=== PATIENT | male | born 1975 | race Caucasian/White ===

== ENCOUNTER 2021-07-24 21:14 | Emergency (ER) | payer BC ==
[2021-07-24] MEDS ORDERED: Ondansetron 4 MG/2 ML SDV IVPUSH ONE ×2 (21:46→23:38)
[2021-07-24] MEDS ORDERED: Sodium Chloride 0.9% 1,000 ML IV ONE (21:46)
[2021-07-24] MEDS ORDERED: HYDROmorphone 1 MG/ML Syringe IVPUSH ONE (21:46)
--- NOTE | 2021-07-24 21:49 | EDM.PDOC ---
ED HPI GENERAL MEDICAL PROBLEM - General Chief Complaint: Gastrointestinal Problem Stated Complaint: VOMITING Time Seen by Provider: 07/24/21 21:31 Source of Information: Reports: Patient History Limitations: Reports: No Limitations - History of Present Illness INITIAL COMMENTS - FREE TEXT/NARRATIVE: Mr. Brock is a very pleasant man who now presents to the ED stating that he d eveloped epigastric abdominal pain, nausea, and vomiting, this past , 07/22/2021. He also states that he feels dehydrated. No recent diarrhea or fever. The patient states that he tried taking a liquid antacid, but vomited it. He states that he also took a stool softener today, but vomited it, as well. The patient reports that he has had similar symptoms approximately 4 times over the past 5 years, most recently about 3 years ago. He states that while he has never undergone an EGD or colonoscopy, he was told that his symptoms were due to gastritis. At triage, the patient was found to be hemodynamically stable, afebrile, saturating 98% on room air. He appears to be comfortable, in no acute distress. Prior to , the patient denies having a recent fever, chills, sore th roat, ear pain, nasal or sinus congestion, cough, dyspnea, chest pain, palpitations, nausea, vomiting, constipation, diarrhea, abdominal pain, urinary symptoms, recent weight gain or weight loss, recent bloody bowel movements or black bowel movements, recent joint aches, headaches, or rashes. The patient states that he last ate around noon today. The patient does not recall the name of his PCP at [facility]. He has received 1 Moderna vaccination, but no influenza vaccination this season. Epigastric Pain Score (Numeric/FACES): 5 - Related Data Allergies Allergy/AdvReac Type Severity Reaction Status Date / Time No Known Allergies Allergy Verified 07/24/21 21:23 Home Meds: Home Meds . [No Known Home Meds] 07/24/21 [History] Past Medical History - Past Surgical History HEENT Surgical History: Reports: Oral Surgery (dental extractions) Social & Family History - Tobacco Use Years of Tobacco use: 27 Packs/Tins Daily: 1 Packs/Tins Daily Comment: Down from 2 ppd Tobacco Use Comment: Started smoking 1993 - Alcohol Use Alcohol Use History: Yes Alcohol Use Frequency: Socially (used to drink excessively) - Recreational Drug Use Recreational Drug Use: Yes Drug Use in Last 12 Months: Yes Recreational Drug Type: Reports: Marijuana/Hashish (last smoked Apr 2021) - Living Situation & Occupation Living situation: Reports: Single, with Significant Other (Girlfriend) Occupation: Unemployed ED ROS GENERAL - Review of Systems Review Of Systems: Comprehensive ROS is negative, except as noted in HPI. ED EXAM, GI/ABD - Physical Exam Exam: See Below Exam Limited By: No Limitations General Appearance: Alert, WD/WN, No Apparent Distress Eyes: Bilateral: Normal Appearance, EOMI Ears: Normal External Exam, Hearing Grossly Normal Nose: Normal Inspection Throat/Mouth: Normal Inspection, Normal Lips, Normal Voice, No Airway Compromise Head: Atraumatic, Normocephalic Neck: Normal Inspection, Full Range of Motion Respiratory/Chest: No Respiratory Distress, Lungs Clear, Normal Breath Sounds, No Accessory Muscle Use Cardiovascular: Normal Peripheral Pulses, Regular Rate, Rhythm, No Edema, No Gallop, No JVD, No Murmur, No Rub GI/Abdominal Exam: Normal Bowel Sounds, Soft, No Organomegaly, No Distention, No Abnormal Bruit, No Mass, Tender (Primarily in the epigastrium, but in the right upper quadrant as well, including a true Casas's sign. Essentially nontender elsewhere.) Back Exam: Normal Inspection, Full Range of Motion. No: CVA Tenderness (L), CVA Tenderness (R) Extremities: Normal Inspection, Normal Range of Motion, No Pedal Edema, Normal Capillary Refill Neurological: Alert, Oriented, Normal Cognition, No Motor/Sensory Deficits Psychiatric: Normal Affect Skin Exam: Warm, Dry, Intact, Normal Color, No Rash Course - Vital Signs Last Recorded V/S: Last Vital Signs Temp 36.7 C 07/24/21 21:25 Pulse 77 07/24/21 21:25 Resp 17 07/24/21 21:25 BP 137/88 07/24/21 21:25 Pulse Ox 98 07/24/21 21:25 - Orders/Labs/Meds Orders: Active Orders 24 hr Category Date Time Status Abdomen Pelvis w Cont [CT] Stat Exams 07/24/21 21:46 Ordered Labs: Laboratory Tests 07/24/21 07/24/21 Range/Units 21:59 21:59 WBC 10.58 H (4.23-9.07) K/mm3 RBC 5.32 (4.63-6.08) M/mm3 Hgb 16.6 (13.7-17.5) gm/dl Hct 48.5 (40.1-51.0) % MCV 91.2 (79.0-92.2) fl MCH 31.2 (25.7-32.2) pg MCHC 34.2 (32.2-35.5) g/dl RDW Std Deviation 44.4 H (35.1-43.9) fL Plt Count 393 H (163-337) K/mm3 MPV 9.5 (9.4-12.3) fl Neut % (Auto) 67.4 (34.0-67.9) % Lymph % (Auto) 23.3 (21.8-53.1) % [place] % (Auto) 8.2 (5.3-12.2) % Eos % (Auto) 0.7 L (0.8-7.0) Baso % (Auto) 0.1 (0.1-1.2) % Neut # (Auto) 7.14 H (1.78-5.38) K/mm3 Lymph # (Auto) 2.46 (1.32-3.57) K/mm3 [place] # (Auto) 0.87 H (0.30-0.82) K/mm3 Eos # (Auto) 0.07 (0.04-0.54) K/mm3 Baso # (Auto) 0.01 (0.01-0.08) K/mm3 Sodium 136 (136-145) mEq/L Potassium 4.2 (3.5-5.1) mEq/L Chloride 97 L (98-107) mEq/L Carbon Dioxide 31 (21-32) mEq/L Anion Gap 12.2 (5-15) BUN 17 (7-18) mg/dL Creatinine 0.9 (0.7-1.3) mg/dL Est Cr Clr Drug Dosing 108.15 mL/min Estimated GFR (MDRD) > 60 (>60) mL/min BUN/Creatinine Ratio 18.9 H (14-18) Glucose 118 H (70-99) mg/dL Calcium 10.0 (8.5-10.1) mg/dL Total Bilirubin 0.5 (0.2-1.0) mg/dL AST 18 (15-37) U/L ALT 33 (16-63) U/L Alkaline Phosphatase 54 (46-116) U/L Total Protein 8.0 (6.4-8.2) g/dl Albumin 4.3 (3.4-5.0) g/dl Globulin 3.7 gm/dL Albumin/Globulin Ratio 1.2 (1-2) Lipase 77 (73-393) U/L Meds: Medications Discontinued Medications Generic Name Dose Route Start Last Admin Trade Name Freq PRN Reason Stop Dose Admin Diatrizoate Meglum/Diatrizoate Sod 120 ml 07/25/21 00:36 07/25/21 00:50 Diatrizoate Meglumine/Diatrizoate Sodium 37% 120 Ml Bottle PO 07/25/21 00:37 120 ml ONETIME ONE Administration Hydromorphone HCl 1 mg 07/24/21 21:46 07/24/21 21:56 Hydromorphone 1 Mg/Ml Syringe IVPUSH 07/24/21 21:47 1 mg ONETIME ONE Administration Sodium Chloride 1,000 mls @ 999 mls/hr 07/24/21 21:46 07/24/21 21:56 Normal Saline IV 07/24/21 22:46 999 mls/hr ONETIME ONE Administration Iopamidol 100 ml 07/24/21 22:50 07/25/21 00:49 Iopamidol 612 Mg/Ml 100 Ml Bottle IVPUSH 07/24/21 22:51 100 ml ONETIME ONE Administration Ondansetron HCl 4 mg 07/24/21 21:46 07/24/21 21:56 Ondansetron 4 Mg/2 Ml Sdv IVPUSH 07/24/21 21:47 4 mg ONETIME ONE Administration Ondansetron HCl 4 mg 07/24/21 23:38 07/24/21 23:42 Ondansetron 4 Mg/2 Ml Sdv IVPUSH 07/24/21 23:39 4 mg ONETIME ONE Administration Sodium Chloride 10 ml 07/24/21 22:50 07/25/21 00:49 Sodium Chloride 0.9% 10 Ml Sdv FLUSH 07/24/21 22:51 10 ml ONETIME ONE Administration - Re-Assessments/Exams Free Text/Narrative Re-Assessment/Exam: 07/24/21 21:47 While most of the patient's pain is localized in the epigastrium, he also has tenderness in the right upper quadrant, including a true Casas sign. I'm concerned about gallstone pancreatitis. I have ordered work-up that includes several blood tests, an ultrasound of the right upper quadrant, and a CT of the abdomen and pelvis with oral and IV contrast. In the meantime, the patient will be treated with IV Dilaudid, IV Zofran, and IV fluid. 07/24/21 23:28 The patient's CBC is remarkable for mild leukocytosis of 10.58, and mild thrombocytosis of 393,000, with remainder of his CBC being unremarkable. His CMP is remarkable for slight hyperglycemia of 118, and is otherwise unremarkable. His lipase level is within normal limits at 77. Ultrasound of the right upper quadrant is read by Dannie as "Unremarkable appearance of the right upper quadrant by ultrasound evaluation." 07/25/21 01:33 CT of the abdomen and pelvis with oral and IV contrast is read by Dannie as: 1. Fatty liver change. 2. Small hiatal hernia with mild circumferential edema. Cannot exclude a mild distal esophagitis. 3. No acute bowel obstruction or edema. 4. A noninflamed appendix is noted. This fills with enteric contrast. 5. No free fluid or free air. 6. No acute renal pathology. Benign-appearing small left renal cyst. 7. No acute pancreatic disease. 8. No adenopathy of the abdomen or pelvis. 9. Minimal fat-containing umbilical hernia. No acute strangulation. 07/25/21 03:48 Test results discussed with the patient and his girlfriend (now present). He states that he is feeling much better, and feels well enough to go home. As above, today's work-up is grossly unremarkable, and does not explain the cause of his pain. The patient feels that his pain is likely due to "stress". I explained that it is possible that he has gallbladder disease, despite his negative work-up, if his pain recurs, he should follow-up with his PCP to arrange for a HIDA scan. He declined an offer for prescriptions for both pain medication and antinausea medicine. Departure - Departure Time of Disposition: 03:49 Disposition: Home, Self-Care 01 Condition: Good Clinical Impression: Upper abdominal pain of unknown etiology, Nausea & vomiting - Discharge Information *PRESCRIPTION DRUG MONITORING PROGRAM REVIEWED*: Not Applicable *COPY OF PRESCRIPTION DRUG MONITORING REPORT IN PATIENT DOYLE: Not Applicable Instructions: Abdominal Pain, Adult, Nausea and Vomiting, Adult, [id number] Referrals: PCP,Not In Area [Primary Care Provider] - Forms: ED Department Discharge Additional Instructions: You were seen in the emergency room after developing upper abdominal pain with nausea and vomiting on . Work-up in the ER included several blood tests, an ultrasound of your gallbladder, and a CT of your abdomen and pelvis with oral and IV contrast. Your entire work-up was unremarkable, and does not explain the cause of your symptoms. As discussed, it is possible that your pain is related to a sick gallbladder, despite your negative work-up. Because of that, we recommend that you eat as low-fat a diet as possible, and if you have recurrence of your symptoms, we recommend that you follow-up with your PCP to arrange for an outpatient HIDA scan. If any other problems, please do not hesitate to return to the ER. Sepsis Event Note (ED) - Evaluation Sepsis Screening Result: No Definite Risk - My Orders Last 24 Hours: My Active Orders 07/24/21 21:46 Abdomen Pelvis w Cont [CT] Stat - Assessment/Plan Last 24 Hours: My Active Orders 07/24/21 21:46 Abdomen Pelvis w Cont [CT] Stat
[2021-07-24] MEDS ORDERED: Sodium Chloride 0.9% 10 ML SDV FLUSH ONE (22:50)
[2021-07-24] MEDS ORDERED: Iopamidol 612 MG/ML 100 ML Bottle IVPUSH ONE (22:50)
[2021-07-25] MEDS ORDERED: Diatrizoate Meglumine/Diatrizoate Sodium 37% 120 ML Bottle PO ONE (00:36)
--- NOTE | 2021-07-25 08:44 | US ---
Limited abdominal ultrasound: Multiple real-time images of the upper right abdomen were obtained. Comparison: No prior abdominal ultrasound is available, subsequent CT study is available. Liver contains no focal abnormality. Gallbladder contains no shadowing gallstones. No gallbladder wall thickening or biliary duct dilatation is seen. Right kidney shows no hydronephrosis or mass and has a length of 10.5 cm. Proximal aorta shows no aneurysm. Tail of the pancreas is not visualized, other portions of the pancreas are felt to be within normal limits. Inferior vena cava is patent. Main portal vein shows normal hepatopedal flow. Impression: 1. Minimal portion of the pancreas is not seen. 2. Other portions of the right upper quadrant abdominal ultrasound appear within normal limits. Diagnostic code #1 I agree with preliminary report from [facility], finalized on 07/25/21, 12:04 AM GUIDANCE CONSULTANT, code 1
--- NOTE | 2021-07-26 10:01 | CT ---
CT abdomen and pelvis Technique: Multiple axial sections were obtained from above the dome of the diaphragm inferiorly through the pubic symphysis. Intravenous and oral contrast were utilized. Delayed images were also obtained to the bladder. Reconstructed coronal and sagittal images were obtained. Comparison: No prior intra-abdominal imaging is available. Findings: Small hiatal hernia is noted. There is slight wall thickening within the distal esophagus raising the possibility of reflux esophagitis. Visualized lung bases show nothing acute. Liver contains no focal abnormality. Spleen size is normal. Gallbladder contains no calcified gallstones. Pancreas shows no discrete abnormality. Kidneys show symmetric contrast enhancement. Small cyst is noted within the left kidney measuring about 8 mm. No additional abnormality is seen within the kidneys. Abdominal aorta shows no aneurysm. No retroperitoneal adenopathy is seen. Mild atherosclerotic change is seen within the aorta. No mesenteric abnormalities are seen. Very minimal fat-containing umbilical hernia is noted. No pelvic mass or adenopathy is seen. Appendix is seen which is normal in size. Bone window settings were reviewed which show very minimal degenerative change within the spine. No acute osseous abnormality is appreciated. Impression: 1. Small hiatal hernia with mild esophageal wall thickening suggesting reflux esophagitis. Please correlate. 2. Other findings most likely incidental as described above. Diagnostic code #2 I agree with preliminary report from [facility], finalized on 07/25/21, 2:22 AM GENERAL CLEANER, code 1 MTDD
== END 2021-07-25 03:59 | disposition home or self-care (01) ==
LOC: JD.ED 21:14
DX: R10.10 Upper abdominal pain, unspecified (principal); R11.2 Nausea with vomiting, unspecified; Z72.0 Tobacco use
CPT/HCPCS: 36415; 74177; 76705; 80053; 83690; 85025; 96374; 96375; 96376; 99284; J1170; J2405; J7030; Q9963; Q9967